=== PATIENT | male | born 1995 | race American Indian/Alaskan Native ===

== ENCOUNTER 2016-09-05 10:26 | Emergency (ER) | payer OTHER ==
[2016-09-05 10:35] VITALS: BP 132/61
--- NOTE | 2016-09-05 13:05 | Emergency Department Report ---
ED Rash HPI - HPI Chief Complaint: Skin Rash Stated Complaint: RASH ON NECK Time Seen by Provider: 09/05/16 12:55 Duration: 1 Day Location: Neck Suspected Cause: Unknown Rash Symptoms: Yes Itching, No Facial Swelling, No Tongue/Oral Swelling, No Breathing Difficulties, No Choking Sensation, No Wheezing/Dyspnea, No Peeling, No Blistering, No Fever, No Lightheaded, No Malaise, No Myalgias Severity: mild Other History: SHEENT complaining of itching bumpy rash to left side of neck. Patient denies any myalgias, fever, headaches, shortness of breath, or swelling of lips tongue or throat. She denies having had chickenpox as a child ED Review of Systems ROS: Stated complaint: RASH ON NECK Other details as noted in HPI Constitutional: denies: chills, fever Eyes: denies: eye pain, eye discharge, vision change ENT: denies: ear pain, throat pain Respiratory: denies: cough, shortness of breath, wheezing Cardiovascular: denies: chest pain, palpitations Endocrine: no symptoms reported Gastrointestinal: denies: abdominal pain, nausea, diarrhea Genitourinary: denies: urgency, dysuria Musculoskeletal: denies: back pain, joint swelling, arthralgia Skin: rash, pruritus. denies: lesions, change in hair/nails Neurological: denies: headache, weakness, paresthesias Psychiatric: denies: anxiety, depression Hematological/Lymphatic: denies: easy bleeding, easy bruising ED Past Medical Hx - Past Medical History Hx Arthritis: Yes - Surgical History Past Surgical History?: No - Social History Smoking Status: Current Every Day Smoker Substance Use Type: Alcohol, Marijuana - Medications Home Medications: Home Medications Medication Instructions Recorded Confirmed Last Taken Type Triamcinolone Acetonide 20 ml TP BID #1 lotion 09/05/16 Unknown Rx [Triamcinolone 0.1% LOTION] hydrOXYzine HCL [Atarax] 25 mg PO Q6HR PRN #20 tablet 09/05/16 Unknown Rx Rash Exam - Exam General: Vital signs noted. No distress. Alert and acting appropriately. HEENT: No Periorbital Edema, No Conjuctival Injection, No Chemosis, No Perioral Edema, No Tongue Edema, No Uvular Edema, No Compromised Airway, No Drooling Lungs: Yes Good Air Exchange (Normal Breath Sounds), No Wheezes, No Ronchi, No Stridor, No Cough, No Labored Respirations, No Retractions, No Use of Accessory Muscles, No Other Abnormal Lung Sounds Heart: Yes Regular, No Murmur Skin: Yes Maculopapular Rash (2 x 3 cm maculopapular area without vesicular eruption, lymphadenopathy, lymphangitis, or warmth and tenderness suggestive of cellulitis. Appears to be area of contact dermatitis.) Other: Positive: Abdomen Normal, Neurologic Normal, Musculoskeletal Normal ED Course Vital Signs 09/05/16 10:32 Temperature 98.5 F Pulse Rate 74 Respiratory 16 Rate Blood Pressure 132/61 O2 Sat by Pulse 100 Oximetry Critical care attestation.: If time is entered above; I have spent that time in minutes in the direct care of this critically ill patient, excluding procedure time. ED Disposition Clinical Impression: Contact dermatitis Disposition: DISCHARGED TO HOME OR SELFCARE Is pt being admited?: No Condition: Good Instructions: Contact Dermatitis (ED) Prescriptions: hydrOXYzine HCL [Atarax] 25 mg PO Q6HR PRN #20 tablet PRN Reason: Itching Triamcinolone Acetonide [Triamcinolone 0.1% LOTION] 20 ml TP BID #1 lotion Referrals: JANA FERNÁNDEZ MD [Primary Care Provider] - 3-5 Days Forms: Work/School Release Form(ED)
== END 2016-09-05 13:18 | disposition home or self-care (01) ==
LOC: ED 10:26
DX: L25.9 Unspecified contact dermatitis, unspecified cause (principal); M19.90 Unspecified osteoarthritis, unspecified site; F12.10 Cannabis abuse, uncomplicated; F17.200 Nicotine dependence, unspecified, uncomplicated
CPT/HCPCS: 99282